=== PATIENT | female | born 1950 | race Caucasian/White ===

== ENCOUNTER 2018-12-31 16:45 | Emergency (ER) | payer OTHER ==
[~2018-12-31] VITALS: Ht 162.6 cm; Wt 78.6 kg
[2018-12-31] MEDS ORDERED: PAXIL10 MG PO (16:56)
[2018-12-31] MEDS ORDERED: SYNTHROID100 MC1 PO (16:57)
[2018-12-31 17:11] LABS: ABSOLUTE EOSINOPHILS 0.1 thou/uL (0.0-0.7); ABSOLUTE LYMPHOCYTES 2.5 thou/uL (0.8-5.3); ABSOLUTE MONOCYTES 0.5 thou/uL (0.0-1.2); ABSOLUTE NEUTROPHILS 3.3 thou/uL (1.6-8.1); BASOPHILS 0.6 %; EOSINOPHILS 1.5 %; HEMATOCRIT 37.3 % (37.0-47.0); HEMOGLOBIN 12.8 gm/dL (12.0-15.0); LYMPHOCYTES 38.4 %; MCH 33.4 pg (26.0-34.0); MCHC 34.2 g/dL (28.0-37.0); MCV 97.5 fL (80.0-100.0); MONOCYTES 8.2 %; MPV 7.2 fl. (7.2-11.1); NUCLEATED RBCS 0 /100WBC; PLATELET COUNT* 355 thou/uL (150-400); POLYS 51.3 %; RBC 3.83 mil/uL (4.20-5.00); RDW-CV 13.1 % (10.5-14.5); WBC 6.5 thou/uL (4.0-11.0)
[2018-12-31 17:18] LABS: CREATININE 0.8 mg/dL (0.6-1.3); POTASSIUM 3.9 mmol/L (3.5-5.1)
[2018-12-31 17:23] LABS: ALBUMIN 3.1 g/dL (3.4-5.0); TOTAL BILIRUBIN 0.2 mg/dL (<0.1-1.0); TOTAL PROTEIN 6.7 g/dL (6.4-8.2)
[2018-12-31 17:26] LABS: APTT 24.6 Seconds (25.0-31.3)
[2018-12-31 17:29] LABS: ALCOHOL 342 mg/dL (<10); SALICYLATE < 2.8 mg/dL (2.8-20.0)
[2018-12-31 17:30] LABS: ACETAMINOPHEN < 2 ug/mL (10-30)
[2018-12-31 17:48] LABS: URINE BILIRUBIN NEGATIVE (Negative); URINE BLOOD NEGATIVE (Negative); URINE CLARITY CLEAR; URINE COLOR YELLOW; URINE GLUCOSE-RANDOM NEGATIVE (Negative); URINE KETONES NEGATIVE (Negative); URINE LEUKOCYTES-REFLEX NEGATIVE (Negative); URINE NITRITE-REFLEX NEGATIVE (Negative); URINE PROTEIN NEGATIVE (Negative); URINE UROBILINOGEN 0.2 E.U./dl (0.2-1.0)
[2018-12-31 17:58] LABS: AMP/METHAMP Negative (Negative); BARBITURATES Negative (Negative); BENZODIAZEPINES Negative (Negative); COCAINE Negative (Negative); METHADONE Negative (Negative); OPIATES Negative (Negative); PCP Negative (Negative); THC Negative (Negative)
[2018-12-31] MEDS ORDERED: ATIVAN1 MG PO (18:28)
[2018-12-31 18:48] VITALS: BP 152/80
--- NOTE | 2019-01-02 12:31 | EKG ---
[place] [address] ELECTROCARDIOGRAM REPORT Name: SHARIF SINGH Room: [facility]#: [id number] Admission: 12/31/18 Attend Phys: Discharge: 12/31/18 Date of : 54 Report #: [id number] THIS REPORT FOR: //name// [facility] ED Test Date: 2018-12-31 Test Time: 16:52:53 Pat Name: SHARIF SINGH Department: Room: Gender: F Delivery Merchandiser: : 1950 Requested By: Charanjit Merino Order Number: [id number] MD: Stefano Vital Measurements Intervals Colp Rate: 72 P: 47 VA: 167 QRS: 27 QRSD: 92 T: 34 QT: 395 QTc: 433 Interpretive Statements Sinus rhythm Low voltage, precordial leads Abnormal R-wave progression, early transition No previous ECG available for comparison Electronically Signed On 01-02-2019 12:31:02 CDT by Stefano Vital [email or web address] <ELECTRONICALLY SIGNED> By: Stefano Vital MD, [facility] 01/02/19 1231 165 51 Stefaon Vital MD, FACC /EPI
== END 2018-12-31 18:48 | disposition home or self-care (01) ==
LOC: M.ERS 16:45
PROVIDERS: Family Medicine
DX: F10.129 Alcohol abuse with intoxication, unspecified (principal); Y90.8 Blood alcohol level of 240 mg/100 ml or more; Z79.899 Other long term (current) drug therapy